=== PATIENT | male | born 1930 | race Native Hawaiian/Other Pacific Islander ===

== ENCOUNTER 2017-01-08 09:53 | Outpatient (CLI) | payer OTHER, MEDICARE ==
[~2017-01-08 09:53] MED LIST: ATOR20TA2 PO; BRILINTA90 MG OR; CADUET10 MG/20 M OR; CEFU250T2 PO; CRANBERRY500 M1 OR; CYCL10TA35 PO; FLUT0.05 NAS; IRON325 MG PO; LEVO0.0218 PO; METO25TA2; METO25TA2 PO; METO50TA63 PO; MULT VITAMI1 PO; OMEPRAZOLE20 M1 OR; POTASSIUM25 MEQ PO
[2017-01-08 10:42] LABS: PLATELET COUNT 139 K/uL (142-355)
[2017-01-08 10:49] LABS: POTASSIUM 3.7 mmol/L (3.6-5.2); SODIUM 139 mmol/L (136-145)
== END 2017-01-08 21:03 | disposition home or self-care (01) ==
LOC: LABW 09:53
PROVIDERS: Internal Medicine
DX: E11.9 Type 2 diabetes mellitus without complications (principal)
CPT/HCPCS: 36415; 80053; 80061; 81000; 82043; 82570; 83036; 84443; 85027

== ENCOUNTER 2017-05-17 10:35 | Emergency (ER) | payer OTHER, MEDICARE ==
[~2017-05-17] VITALS: Ht 167.6 cm; Wt 77.1 kg
[2017-05-17 11:23] LABS: PLATELET COUNT 141 K/uL (142-355)
[2017-05-17 11:31] LABS: POTASSIUM 4.6 mmol/L (3.6-5.2); SODIUM 138 mmol/L (136-145)
[2017-05-17 11:53] LABS: PARTIAL THROMBOPLASTIN TIME 26.6 SECONDS (24.5-33.6)
[2017-05-17 15:48] VITALS: BP 130/64; TEMP 97.2
== END 2017-05-17 15:49 ==
LOC: ED 10:35
DX: R07.89 Other chest pain (principal); R94.31 Abnormal electrocardiogram [ECG] [EKG]; I50.9 Heart failure, unspecified
CPT/HCPCS: 36415; 80053; 82553; 84443; 84484; 85027; 85610; 85730; 93005; 99284

== ENCOUNTER 2017-06-24 09:00 | Inpatient (IN) | payer OTHER, MEDICARE ==
[~2017-06-24] VITALS: Ht 172.7 cm; Wt 75.3 kg
[2017-06-24 10:53] LABS: PLATELET COUNT 191 K/uL (142-355)
[2017-06-24 12:09] LABS: POTASSIUM 4.6 mmol/L (3.6-5.2); SODIUM 134 mmol/L (136-145)
[2017-06-24 12:12] VITALS: BP 85/50; TEMP 98.8; Ht 172.7 cm; Wt 75.3 kg
[2017-06-24] MEDS ORDERED: FURO40TA93 PO (15:31)
[2017-06-24] MEDS ORDERED: METOPROLOL SUCC1 TA1 PO (15:32)
[2017-06-24] MEDS ORDERED: TRAM50TA PO (15:33)
[2017-06-24] MEDS ORDERED: BENICAR20 MG PO (15:34)
[2017-06-24] MEDS ORDERED: ALDACTAZIDE PO (15:35)
[2017-06-24] MEDS ORDERED: PRAS10TA PO (15:36)
[2017-06-24 16:00] VITALS: BP 100/52; TEMP 97.8
[2017-06-24 20:00] VITALS: BP 111/58; TEMP 97.7
[2017-06-25] VITALS: BP 109/52; TEMP 99.7
[2017-06-25 04:00] VITALS: BP 98/56; TEMP 98.2
[2017-06-25 06:23] LABS: PLATELET COUNT 87 K/uL (142-355)
[2017-06-25 06:37] LABS: POTASSIUM 3.9 mmol/L (3.6-5.2)
[2017-06-25 08:00] VITALS: BP 89/50; TEMP 98.5
[2017-06-25 12:00] VITALS: BP 100/57; TEMP 98.1
--- NOTE | 2017-06-25 15:04 | NUR ---
1500 [facility] CALLED TO DR ORLY. CRUZ REQUESTED LABS BE FAXED TO HIM . LABS FAXED AT THIS TIME. AWAITING FURTHER ORDERS
[2017-06-25 16:00] VITALS: BP 100/53; TEMP 97.8
[2017-06-25 20:01] VITALS: BP 111/60; TEMP 98.7
[2017-06-26] VITALS: BP 109/61; TEMP 98.1
[2017-06-26 04:00] VITALS: BP 105/59; TEMP 98.2
[2017-06-26 05:08] LABS: PLATELET COUNT 100 K/uL (142-355)
[2017-06-26 05:51] LABS: POTASSIUM 3.9 mmol/L (3.6-5.2); SODIUM 137 mmol/L (136-145)
[2017-06-26 08:00] VITALS: BP 131/77; TEMP 98.1
[2017-06-26 12:00] VITALS: BP 116/71; TEMP 97.7
[2017-06-26 16:00] VITALS: BP 104/71; TEMP 97.7
[2017-06-26 20:00] VITALS: BP 133/77; TEMP 98.4
[2017-06-27] VITALS: BP 135/78; TEMP 98.4
[2017-06-27 04:00] VITALS: BP 139/78; TEMP 97.7
[2017-06-27 08:00] VITALS: BP 122/72; TEMP 98.1
[2017-06-27 08:17] LABS: PLATELET COUNT 105 K/uL (142-355)
[2017-06-27 08:30] LABS: POTASSIUM 3.8 mmol/L (3.6-5.2); SODIUM 137 mmol/L (136-145)
--- NOTE | 2017-06-27 11:39 | NUR ---
@1120 PT DISCHARGED HOME, ACCOMPANIED BY SPOUSE, AMBULATED TO PRIVATE VEHICLE, NAD NOTED. DISCHARGE PAPERWORK GIVEN TO PATIENT ALONG WITH HOME MEDS.
== END 2017-06-27 11:20 | disposition home or self-care (01) | DRG 373 ==
LOC: MED/SURG 09:00
PROVIDERS: ADMIT Internal Medicine
DX: A07.2 Cryptosporidiosis (principal); E86.0 Dehydration; R11.2 Nausea with vomiting, unspecified; I25.10 Atherosclerotic heart disease of native coronary artery without angina pectoris; E11.9 Type 2 diabetes mellitus without complications; E03.8 Other specified hypothyroidism
CPT/HCPCS: 36415; 80053; 82550; 82948; 83735; 84484; 85027; 87015; 87045; 87205; 87324; 87328; 87329; 87449; 87899; 96360; 96361; J2405; J3490

== ENCOUNTER 2017-08-07 11:03 | Observation (INO) | payer OTHER, MEDICARE ==
[~2017-08-07] VITALS: Ht 172.7 cm; Wt 76.7 kg
[~2017-08-07 11:03] MED LIST changes: +ALDACTAZIDE PO; +BENICAR20 MG PO; +FURO40TA93 PO; +METOPROLOL SUCC1 TA1 PO; +PRAS10TA PO; +TRAM50TA PO
[2017-08-07 11:15] VITALS: BP 119/69; TEMP 99.1
[2017-08-07 13:20] VITALS: BP 99/56
[2017-08-07 14:05] VITALS: BP 109/65
[2017-08-07] MEDS ORDERED: PRAS10TA PO (14:34)
[2017-08-07] MEDS ORDERED: SPIRONOLACT25 MG PO (14:34)
[2017-08-07] MEDS ORDERED: METO50TA63 PO (14:35)
[2017-08-07] MEDS ORDERED: FURO40TA93 PO (14:36)
[2017-08-07] MEDS ORDERED: TRAM50TA PO (14:37)
[2017-08-07] MEDS ORDERED: ASPIRIN81 M1 OR (14:38)
[2017-08-07] MEDS ORDERED: SUPER B COM1 OR (14:39)
[2017-08-07] MEDS ORDERED: CRANBERRY500 M1 OR (14:39)
[2017-08-07] MEDS ORDERED: LEVO0.0529 PO (14:39)
[2017-08-07] MEDS ORDERED: OMEP20CA PO (14:40)
[2017-08-07 16:29] LABS: PLATELET COUNT 100 K/uL (142-355)
[2017-08-07 16:37] LABS: POTASSIUM 4.9 mmol/L (3.6-5.2)
[2017-08-07 21:38] VITALS: BP 115/73; TEMP 98.1; Ht 172.7 cm; Wt 76.7 kg
[2017-08-08] VITALS: BP 110/69; TEMP 98.1
[2017-08-08 04:00] VITALS: BP 122/70; TEMP 98.5
[2017-08-08 05:56] LABS: PLATELET COUNT 92 K/uL (142-355)
[2017-08-08 06:06] LABS: POTASSIUM 4.6 mmol/L (3.6-5.2)
[2017-08-08 08:00] VITALS: BP 132/75; TEMP 99
[2017-08-08 11:59] VITALS: BP 88/52; TEMP 97.6
== END 2017-08-08 13:20 | disposition home or self-care (01) ==
LOC: ED 11:03 → MED/SURG 14:20
DX: R31.9 Hematuria, unspecified (principal); N20.0 Calculus of kidney; S39.012A Strain of muscle, fascia and tendon of lower back, initial encounter; V49.88XA Car occupant (driver) (passenger) injured in other specified transport accidents, initial encounter; Y93.89 Activity, other specified; Y92.89 Other specified places as the place of occurrence of the external cause; E11.9 Type 2 diabetes mellitus without complications; E03.8 Other specified hypothyroidism; I10 Essential (primary) hypertension
CPT/HCPCS: 36415; 80053; 81000; 85027; 96372; 99220; 99283; G0378; J1885

== ENCOUNTER 2017-11-25 12:22 | Outpatient (CLI) | payer OTHER, MEDICARE ==
[~2017-11-25 12:22] MED LIST changes: +ASPIRIN81 M1 OR; +LEVO0.0529 PO; +OMEP20CA PO; +SPIRONOLACT25 MG PO; +SUPER B COM1 OR
[2017-11-25 12:38] LABS: PLATELET COUNT 122 K/uL (142-355)
[2017-11-25 12:46] LABS: POTASSIUM 4.6 mmol/L (3.6-5.2)
== END 2017-11-25 19:23 | disposition home or self-care (01) ==
LOC: LABW 12:22
PROVIDERS: Internal Medicine Cardiovascular Disease
DX: Z79.899 Other long term (current) drug therapy (principal); Z51.81 Encounter for therapeutic drug level monitoring
CPT/HCPCS: 36415; 80048; 83735; 85027

== ENCOUNTER 2018-02-08 14:24 | Outpatient (CLI) | payer OTHER, MEDICARE | END 2018-02-08 22:51 | disposition home or self-care (01) | LOC: CT 14:24 | DX: R31.9 Hematuria, unspecified (principal) ==

== ENCOUNTER 2018-02-11 11:36 | Outpatient (CLI) | payer OTHER, MEDICARE ==
[2018-02-11 12:20] LABS: PLATELET COUNT 179 K/uL (142-355)
[2018-02-11 13:57] LABS: POTASSIUM 4.7 mmol/L (3.6-5.2)
== END 2018-02-11 19:37 | disposition home or self-care (01) ==
LOC: LABW 11:36
PROVIDERS: Internal Medicine
DX: E11.9 Type 2 diabetes mellitus without complications (principal)
CPT/HCPCS: 36415; 80053; 80061; 81000; 82043; 82570; 84443; 85027

== ENCOUNTER 2018-11-26 08:42 | Outpatient (CLI) | payer OTHER | END 2018-11-26 22:37 | disposition home or self-care (01) | LOC: US 08:42 | DX: Z13.6 Encounter for screening for cardiovascular disorders (principal) ==

== ENCOUNTER 2019-05-16 13:53 | Outpatient (CLI) | payer OTHER | END 2019-05-17 05:54 | disposition home or self-care (01) | LOC: CT 13:53 | DX: R31.0 Gross hematuria (principal) ==

== ENCOUNTER 2019-09-01 08:04 | Outpatient (CLI) | payer OTHER ==
[~2019-09-01] VITALS: Ht 170.2 cm; Wt 83.0 kg
== END 2019-09-01 19:49 | disposition home or self-care (01) ==
LOC: NM 08:04
DX: R53.1 Weakness (principal); I34.0 Nonrheumatic mitral (valve) insufficiency
CPT/HCPCS: A9500; J2785

== ENCOUNTER 2019-12-14 19:12 | Emergency (ER) | payer OTHER ==
[~2019-12-14] VITALS: Ht 170.2 cm; Wt 83.0 kg
[2019-12-14 20:11] LABS: PLATELET COUNT 142 K/uL (142-355)
[2019-12-14 20:26] LABS: POTASSIUM 5.7 mmol/L (3.6-5.2)
[2019-12-14 23:27] VITALS: BP 131/83; TEMP 98.1
== END 2019-12-14 23:27 | disposition home or self-care (01) ==
LOC: ED 19:12
PROVIDERS: Emergency Medicine
DX: K62.5 Hemorrhage of anus and rectum (principal); R10.84 Generalized abdominal pain
CPT/HCPCS: 36415; 80053; 82272; 85027; 99283; Q9963

== ENCOUNTER 2020-07-02 15:32 | Outpatient (CLI) | payer OTHER | END 2020-07-02 19:25 | disposition home or self-care (01) | LOC: LAB 15:32 | DX: Z00.00 Encounter for general adult medical examination without abnormal findings (principal); Z12.5 Encounter for screening for malignant neoplasm of prostate; Z12.11 Encounter for screening for malignant neoplasm of colon; Z79.899 Other long term (current) drug therapy | CPT/HCPCS: 82272 ==

== ENCOUNTER 2020-08-03 08:23 | Outpatient (CLI) | payer OTHER | END 2020-08-03 22:21 | disposition home or self-care (01) | LOC: CT 08:23 | DX: Z12.2 Encounter for screening for malignant neoplasm of respiratory organs (principal); Z87.891 Personal history of nicotine dependence | CPT/HCPCS: G0297-TC ==

== ENCOUNTER 2021-10-15 16:58 | Emergency (ER) | payer OTHER ==
[~2021-10-15] VITALS: Ht 170.2 cm; Wt 79.4 kg
[2021-10-15 19:17] VITALS: BP 122/75; TEMP 98.3
== END 2021-10-15 19:19 | disposition home or self-care (01) ==
LOC: ED 16:58
DX: S09.8XXA Other specified injuries of head, initial encounter (principal); S00.83XA Contusion of other part of head, initial encounter; S00.81XA Abrasion of other part of head, initial encounter; W01.198A Fall on same level from slipping, tripping and stumbling with subsequent striking against other object, initial encounter; Y92.512 Supermarket, store or market as the place of occurrence of the external cause
CPT/HCPCS: 96372; 99283; J0690; J1885